=== PATIENT | female | born 1985 | race Caucasian/White ===

== ENCOUNTER 2020-11-18 01:54 | Inpatient (IN) ==
--- NOTE | 2020-11-18 02:53 | Anesthesiology Consultation ---
Date of Service November 18, 2020 Assessment & Plan (1) Encounter for pre-operative examination: Chart Review Chart Review: Acceptable Risk for Surgery and Patient NOT seen in Pre Admission Testing Consults Requested none History Allergies Allergy/AdvReac Type Severity Reaction Status Date / Time No Known Drug Allergies Allergy Uncoded 11/10/20 11:12 Medications Home Medications Medication Instructions Recorded Confirmed Last Taken omeprazole 20 mg capsule,delayed 20 mg PO DAILY 08/20/19 11/17/20 Unknown release prenat.vits,yamilex,gaf-hlgi-nucon 1 tab PO DAILY 04/07/20 11/17/20 Unknown breast pump #1 ea 09/05/20 11/17/20 Unknown levothyroxine 100 mcg tablet 100 mcg PO DAILY #90 tab 11/14/20 11/17/20 Unknown Past Medical History Medical History Anemia Classic migraine with aura Migraines, possible aura. Evaluation 2011 with Neuro. Stopped TRISTAN and started nortryptyline: relief of MITCHELL. Would avoid estrogens going forward. Esophagitis determined by biopsy Mononucleosis In 2009 Past Family History Family History Sister Skin cancer Uncle Cancer kidney cancer Aunt Lung cancer Denies family history of Ovarian cancer Breast cancer Colorectal cancer Past Surgical History Surgical History H/O wisdom tooth extraction Social History Smoking Status: Never smoker Physical Exam Vital Signs Last Vital Signs Temp 36.7 C 11/18/20 02:11 Pulse 75 11/18/20 02:13 Resp 18 11/18/20 02:11 BP 119/70 11/18/20 02:13
[2020-11-18] MEDS ORDERED: OXYTOCIN 30 UNITS/500 ML BAG IV PRN ×3 (02:54→18:10)
--- NOTE | 2020-11-18 03:12 | History & Physical Report ---
Date of Service November 18, 2020 Assessment & Plan (1) SROM (spontaneous rupture of membranes): 35 y/o G1 at 38 5/7 wga presenting after SROM -VSS -Fetus cat 1 -Labor - josé well spontaneously, will recheck and discuss augmentation if no progress. Pt amenable. Pt concerned about projected wt of baby and CS, discussed would allow time for progression as long as baby and mom are stable, there is no distinct time after SROM that CS is mandatory and pt was reassured by this -GBS neg -Epidural PRN -COVID testing ordered History of Present Illness Chief Complaint: SROM Primary Care Provider: Lisa Giles, DO 35 y/o G1 at 38 5/7 wga w/ ILSA 11/27 presents after LOF began around midnight, subsequently had large gush an hour after. +FM and ctx, fluid is blood tinged but no get blood PNI: IUI w/ sperm donor, same sex couple Hypothyroid - just had synthroid dose changed to 100mcg Itching of hands and feet - BA, LFTs wnl AMA Rh neg Past [employer] Hx: G1 Menarche 13, cycles q26d denies hx STIs pap 2019 neg cotest, no hx colpo Allergies Allergy/AdvReac Type Severity Reaction Status Date / Time No Known Drug Allergies Allergy Uncoded 11/10/20 11:12 Home Medications Medication Instructions Recorded Confirmed Type omeprazole 20 mg capsule,delayed 20 mg PO DAILY 08/20/19 11/17/20 History release prenat.vits,yamilex,mld-xjwq-grmaq 1 tab PO DAILY 04/07/20 11/17/20 History breast pump #1 ea 09/05/20 11/17/20 Rx levothyroxine 100 mcg tablet 100 mcg PO DAILY #90 tab 11/14/20 11/17/20 Rx Patient History Medical History (Updated 11/18/20 @ 03:08 by Marley Agosto MD) Anemia Classic migraine with aura Migraines, possible aura. Evaluation 2011 with Neuro. Stopped TRISTAN and started nortryptyline: relief of MITCHELL. Would avoid estrogens going forward. Esophagitis determined by biopsy Mononucleosis In 2009 Surgical History H/O wisdom tooth extraction Family History Sister Skin cancer Uncle Cancer kidney cancer Aunt Lung cancer Denies family history of Ovarian cancer Breast cancer Colorectal cancer Social History Smoking Status: Never smoker marital status: marital status details: Esha Andersen (37) [phone]: (Sperm donor age 27) Current Living Situation: Spouse Current Living Situation Comment: lives with spouse, 1 dog. current occupational status: employed current occupation: Professor at [employer]. Physical Exam Constitutional: WD/WN, vitals as above Respiratory: normal respiratory effort; no respiratory distress and no labored breathing Psychiatric: A+Ox3, euthymic affect Genitourinary: OB Exam Abdomen: + vertex (confirmed by BSUS) and + estimated weight (7-8) Manual OB Exam: + cervical dilation (1.5), + cervical effacement 90%, + station -2 and + amniotic fluid (SSE +nitrazine, pooling, ferning) nitrazine positive and ferning present OB Exam Monitor Tracing: + external FHT monitor used, + external uterine monitor used (q3min) and + category I (155/mod/+accel/-decel) [facility]) Vital Signs (Past 12 Hours) Vital Signs Temp Pulse Resp BP 11/18/20 02:13 75 119/70 11/18/20 02:11 98.1 F 18 Laboratory Results OB Labs: Blood Type B Negative 04/21/20 Antibody Screen NEGATIVE 09/05/20 Hemoglobin 11.4 g/dL (12.0-16.0) L 09/05/20 Hematocrit 34.4 % (37-47) L 09/05/20 Mean Corpuscular Volume 85.3 fL (80-100) 04/21/20 Platelet Count 231 K/uL (130-400) 04/21/20 Rubella IgG Antibody Immune (Immune) 04/21/20 Rapid Plasma Reagin Nonreactive (Nonreactive) 04/21/20 Hepatitis B Surface Antigen Neg (Neg) 04/21/20 HIV (1&2) Ab and P24 Ag, 4th Gener Neg (Neg) 04/21/20 Glucose 1 Hour 50 gm Load 121 mg/dl (70-130) 09/05/20 OB Optional Labs: Chlamydia trachomatis RNA NOT DETECTED (NOT DETECTED) 04/21/20 Neisseria gonorrhoeae RNA NOT DETECTED (NOT DETECTED) 04/21/20 Thyroid Stimulating Hormone (TSH) 2.010 uIu/ml (0.300-4.500) 11/10/20 Labs Reviewed: panorama low risk--akh GBS neg Diagnostic Findings 11/03 EFW 3371g 7lb 7oz, AC 96%, ant plac Code Status & VTE Plan VTE Prophylaxis Plan VTE Prophylaxis will be ordered: Yes Coding Level of Care Code None Diagnoses SROM (spontaneous rupture of membranes)
[2020-11-18] MEDS: LACTATED RINGER'S 1,000 ML IV PRN ×5 (03:15→15:26)
[2020-11-18 03:17] LABS: Hematocrit (blood only) 30.7 % (37-47); Hemoglobin 10.4 g/dL (12.0-16.0); Mean Corpuscular Hemoglobin 30.1 pg (25-34); Mean Corpuscular Hgb Conc 33.9 g/dL (32-36); Mean Platelet Volume 11.1 fL (7.4-10.4); Platelet Count 159 K/uL (130-400); RDW Coefficient of Variation 13.1 % (11.5-14.5); RDW Standard Deviation 42.3 fL (36.4-46.3); Red Blood Count 3.45 M/uL (4.2-5.4); White Blood Count 7.91 K/uL (4.8-10.8)
[2020-11-18] MEDS ORDERED: SODIUM CHLORIDE 0.9% INJ 10 ML VIAL ONE (03:50)
[2020-11-18] MEDS ORDERED: ePHEDrine sulfate 50 MG/ML AMP ONE (03:50)
[2020-11-18] MEDS ORDERED: BUPIVACAINE 0.25% 30 ML VIAL ONE (03:51)
[2020-11-18] MEDS ORDERED: fentaNYL citrate 100 MCG/2 ML VIAL ONE (03:51)
[2020-11-18] MEDS ORDERED: fentaNYL 2MCG/ML ROPIVACAINE 1.25MG/ML 100 ML BAG EPI ONE (03:52)
[2020-11-18] MEDS ORDERED: diphenhydrAMINE 50 MG/ML VIAL IV PRN (05:06)
[2020-11-18] MEDS ORDERED: ONDANSETRON INJ 2 MG/ML 2 ML VIAL IV PRN (05:06)
[2020-11-18] MEDS ORDERED: NALOXONE HCL 0.4 MG/1 ML VIAL/CARP IV PRN (05:06)
[2020-11-18] MEDS ORDERED: ePHEDrine sulfate 50 MG/ML AMP IV PRN (05:06)
[2020-11-18] MEDS ORDERED: NALOXONE HCL 1 MG in SODIUM CHLORIDE 0.9% 1000ML 1,000 ML IV PRN (05:06)
[2020-11-18] MEDS ORDERED: fentaNYL 2MCG/ML ROPIVACAINE 1.25MG/ML 100 ML BAG EPI PRN (05:06)
[2020-11-18] MEDS: LEVOTHYROXINE SODIUM 100 MCG TABLET PO SCH (05:45)
--- NOTE | 2020-11-18 07:15 | Labor Progress Brief Note ---
Date of Service November 18, 2020 Subjective Comfortable w/ epidural Assessment & Plan (1) SROM (spontaneous rupture of membranes): 35 y/o G1 at 38 5/7 wga presenting after SROM -VSS -Fetus cat 1 -Labor - progressing spontaneously, will augment as needed -GBS neg -Epidural in place Admission and Anticipated Discharge Date Admission Date: November 18, 2020 Physical Exam Constitutional: WD/WN, vitals as above Respiratory: normal respiratory effort; no respiratory distress and no labored breathing Psychiatric: A+Ox3, euthymic affect Genitourinary: OB Exam Monitor Tracing: + external FHT monitor used, + external uterine monitor used (q6min) and + category I (150/mod/+accel/-decel) 6/100/-1 by nursing at 645 Results & Data ([facility]) Vital Signs (Past 12 Hours) Vital Signs Temp Pulse Resp BP Pulse Ox 11/18/20 07:10 76 100 11/18/20 07:05 71 100 11/18/20 07:00 69 100 11/18/20 06:59 60 116/56 L 11/18/20 06:55 75 100 11/18/20 06:50 71 100 11/18/20 06:45 75 100 11/18/20 06:40 73 100 11/18/20 06:35 70 100 11/18/20 06:30 59 L 100 11/18/20 06:29 65 112/58 L 11/18/20 06:25 72 100 11/18/20 06:20 66 100 11/18/20 06:16 60 111/55 L 11/18/20 06:15 63 100 11/18/20 06:10 74 100 11/18/20 06:05 58 L 100 11/18/20 06:00 62 104/58 L 100 11/18/20 05:55 64 100 11/18/20 05:50 61 100 11/18/20 05:45 82 100 11/18/20 05:44 78 98/51 L 11/18/20 05:40 68 99 11/18/20 05:38 71 94/55 L 11/18/20 05:35 75 100 11/18/20 05:34 71 100/51 L 11/18/20 05:30 98.4 F 85 20 100 11/18/20 05:29 69 96/51 L 11/18/20 05:25 84 100 11/18/20 05:23 67 95/50 L 11/18/20 05:20 70 100/56 L 100 11/18/20 05:15 67 100 11/18/20 05:13 80 100/61 11/18/20 05:10 79 100 11/18/20 05:08 68 106/61 11/18/20 05:05 79 100 11/18/20 05:03 75 105/64 11/18/20 05:00 74 100 11/18/20 04:58 75 103/59 L 11/18/20 04:55 77 105/57 L 100 11/18/20 04:50 71 100 11/18/20 04:48 76 109/62 11/18/20 04:46 76 113/67 11/18/20 04:45 78 100 11/18/20 04:40 81 100 11/18/20 04:35 75 100 11/18/20 04:30 67 100 11/18/20 04:26 98.2 F 67 128/67 11/18/20 04:25 67 100 11/18/20 04:20 64 100 11/18/20 04:15 182 H 83 L 11/18/20 02:43 97.5 F L 18 11/18/20 02:13 75 119/70 11/18/20 02:11 98.1 F 18 Coding Level of Care Code None Diagnoses SROM (spontaneous rupture of membranes)
[2020-11-18] MEDS: PANTOprazole 40 MG TAB PO SCH (09:11)
[2020-11-18] MEDS ORDERED: METHYLERGONOVINE MALEATE 0.2 MG/ML AMP ONE (17:34)
[2020-11-18] MEDS: miSOPROStoL 200 MCG TAB ONE ×2 (17:55→18:47)
--- NOTE | 2020-11-18 18:08 | Delivery Summary ---
Vaginal Delivery Summary Date of Service November 18, 2020 Vaginal Delivery Summary and 3rd Degree LAC Vaginal Delivery Summary: Pre-delivery diagnoses: 35yo @ 38 5/7, spontaneous labor with SROM, AMA, hypothyroidism, IUI conception, Rh negative Post-delivery diagnoses: same, partial 3rd degree perineal laceration Procedure: spontaneous vaginal delivery, repair of partial 3rd degree perineal laceration Surgeon: Vicki Diamond DO Complications: none Findings: Viable male . Apgars: 7/9. Weight pending, please see nursery records. Estimated blood loss: 400ml Description of delivery: The patient progressed to complete with epidural anesthesia. She then began to push. She spontaneously vaginally delivered a viable from the cephalic presentation. The head delivered in VICENTE position. Nuchal x 1, easily reduced. The anterior shoulder delivered, followed by the posterior shoulder, followed by the body. The baby was placed on mother's abdomen and a spontaneous cry was heard. The cord was doubly clamped and cut. A segment was retained for cord gases. Cord blood was obtained. The placenta was delivered spontaneously intact with a 3-vessel cord. The uterus and vagina were swept of clots and debris. IV pitocin was given. The uterine fundus became firm, however the lower uterine segment was still atonic, therefore the bladder was drained for a small amount of concentrated urine. Uterine massage was performed, as well as a dose of methergine IM followed by a dose of cytotec CO. The cervix, vagina, and perineum were inspected and a partial 3rd degree laceration was noted. Rectal exam revealed no tear into the rectum. The anal sphincter was partially torn on the anterior aspect. This was brought together with 2 [id number] sutures of 3-0 chromic. The remaining 2nd degree tear was reapproximated with 3-0 vicryl in standard fashion. At the end of the repair, rectal exam revealed no sutures or tears in the rectum. The uterine fundus remained firm and the lower uterine segment was also firm by this point. Excellent hemostasis was observed. The mother and baby are recovering in stable and good condition in the room. Sponge, needle and instrument counts were correct x 2. Vicki Diamond DO [facility] [place]inal Delivery Charge Vaginal Delivery Codes: 69231 global code for the antepartum, delivery, and post- Delivery Type Details: and 3rd Degree LAC
[2020-11-18] MEDS ORDERED: ACETAMINOPHEN 325 MG TAB PO PRN (18:10)
[2020-11-18] MEDS ORDERED: bisacodyL 10 MG SUPP PR PRN (18:10)
[2020-11-18] MEDS ORDERED: DIPHTHERIA/TETANUS/PERTUSSIS 0.5 ML SYR/VIAL IM ONE (18:10)
[2020-11-18] MEDS ORDERED: HYDROCORTISONE ACETATE 25 MG SUPP PR PRN (18:10)
[2020-11-18] MEDS ORDERED: oxyCODONE/ACETAMINOPHEN 5mg/325mg TAB PO PRN (18:10)
[2020-11-18] MEDS ORDERED: BENZOCAINE 20% AER SPR 82.5 GM CAN EXT PRN (18:10)
[2020-11-18] MEDS ORDERED: SUPERCREAM 0.870% 15 GM JAR EXT PRN (18:10)
--- NOTE | 2020-11-18 18:19 | Anesthesia Procedure Note ---
Date of Service November 18, 2020 Anesthesia Post Epidural Note Vital Signs Vital Signs: Temp Pulse Resp BP Pulse Ox 37.5 C 80 18 110/56 L 99 11/18/20 14:57 11/18/20 17:59 11/18/20 16:30 11/18/20 17:59 11/18/20 17:25 Pain Intensity Bilateral Abdomen: Pain Intensity: 2 Notes Mental Status: alert / awake / arousable and participated in evaluation Patient Amnestic to Procedure: No Nausea / Vomiting: adequately controlled Pain: adequately controlled Airway Patency, RR, SpO2: stable & adequate BP & HR: stable & adequate Hydration State: stable & adequate Neuraxial Anesthesia: was administered and sensory block is resolving Anesthetic Complications: no major complications apparent and Pt Satisfied with anesthetic care Epidural: Removed without complications and With tip intact
[2020-11-18] MEDS ORDERED: LACTATED RINGER'S 1,000 ML IV SCH (18:30)
[2020-11-18] MEDS: IBUPROFEN 600 MG TAB PO PRN (20:13)
[2020-11-18] MEDS: DOCUSATE SODIUM 100 MG CAP PO SCH (20:16)
[2020-11-19] MEDS: IBUPROFEN 600 MG TAB PO PRN ×4 (03:35→16:25)
[2020-11-19] MEDS: LEVOTHYROXINE SODIUM 100 MCG TABLET PO SCH (06:38)
[2020-11-19 06:39] LABS: Hematocrit (blood only) 25.4 % (37-47); Hemoglobin 8.7 g/dL (12.0-16.0); Mean Corpuscular Hemoglobin 30.3 pg (25-34); Mean Corpuscular Hgb Conc 34.3 g/dL (32-36); Mean Corpuscular Volume 88.5 fL (80-100); Mean Platelet Volume 11.5 fL (7.4-10.4); Platelet Count 134 K/uL (130-400); RDW Coefficient of Variation 13.3 % (11.5-14.5); RDW Standard Deviation 43.4 fL (36.4-46.3); Red Blood Count 2.87 M/uL (4.2-5.4); White Blood Count 15.45 K/uL (4.8-10.8)
[2020-11-19] MEDS: DOCUSATE SODIUM 100 MG CAP PO SCH (07:51)
[2020-11-19] MEDS ORDERED: PRENATAL VITAMIN 1 TAB PO SCH (08:00)
[2020-11-19] MEDS ORDERED: FERROUS SULFATE 325 MG TAB PO SCH (08:00)
--- NOTE | 2020-11-19 08:08 | Obstetrical Progress Note ---
Date of Service November 19, 2020 Assessment & Plan (1) Encounter for care and examination after delivery: satisfactory progress continue current care plan Subjective Ambulation: ambulating normally Voiding: no voiding problems Passing Gas:: Yes Diet Tolerance:: regular diet Lochia:: Moderate Feeding Type:: breast feeding feeling well this morning. no lightheadedness or dizziness. Physical Exam Constitutional WD/WN, vitals as above Psychiatric A+Ox3, euthymic affect Genitourinary OB Exam Abdomen: + fundal height Fundus: + firm and + relation to umbilicus (at U) Results & Data ([facility]) Vital Signs (Past 12 Hours) Vital Signs Temp Pulse Pulse Resp BP BP Pulse Ox 11/19/20 03:25 97.9 F 65 18 103/65 96 11/18/20 23:00 98.4 F 64 16 112/57 L 96 11/18/20 21:15 98.2 F 82 18 122/70 95 11/18/20 20:30 18 11/18/20 20:29 76 116/59 L 11/18/20 20:14 71 111/55 L
[2020-11-19] MEDS ORDERED: NON-FORMULARY MEDICATION (Omeprazole 20 mg capsule,delayed release(DR/EC)) PO SCH (09:00)
[2020-11-19] MEDS ORDERED: LEVOTHYROXINE SODIUM 100 MCG TABLET PO SCH (09:00)
[2020-11-19] MEDS: PANTOprazole 40 MG TAB PO SCH (09:29)
[2020-11-19] MEDS ORDERED: bisacodyL 5 MG TABEC PO SCH (20:00)
== END 2020-11-19 18:50 | disposition home or self-care (01) | DRG 768 ==
LOC: OPB 01:54 → 4S1 01:58 → 4S2 20:50